=== PATIENT | male | born 1955 | race Two or more races ===

== ENCOUNTER 2020-09-21 14:36 | Outpatient (CLI) | payer OTHER | END 2020-09-21 15:44 | disposition home or self-care (01) | LOC: OFIC 805 14:36 | PROVIDERS: ATTEND Otolaryngology Otology & Neurotology | DX: H60.391 Other infective otitis externa, right ear (principal); H61.21 Impacted cerumen, right ear ==

== ENCOUNTER 2021-05-15 07:07 | Outpatient (CLI) | payer OTHER | END 2021-05-15 07:08 | disposition home or self-care (01) | LOC: NUCLEAR 07:07 | PROVIDERS: ATTEND Internal Medicine Rheumatology | DX: M06.4 Inflammatory polyarthropathy (principal) | CPT/HCPCS: 78315; A9503 ==